=== PATIENT | male | born 1970 | race Caucasian/White ===

== ENCOUNTER 2017-02-19 18:18 | Observation (INO) | payer OTHER ==
[2017-02-19] MEDS ORDERED: NITROGLYCERIN SL 0.4 MG TABLET SL STA (19:03)
[2017-02-19] MEDS ORDERED: ASPIRIN CHEW 81 MG TABLET PO STA (19:03)
--- NOTE | 2017-02-19 19:08 | ED Physician Documentation ---
PD HPI CHEST PAIN - Stated complaint Stated Complaint: CHEST PX - Chief complaint Chief Complaint: Cardiac - History obtained from History obtained from: Patient - History of Present Illness Timing - onset: Other (46yo male with bad fhx- dad's first [place] at age 41. [place] tired with some LBP all day. About 1 hour ago with severe L sided chest pain without radiation and tingly L arm. Hurts to tqake a deep breath but no dyspnea. ) Review of Systems Ten Systems: 10 systems reviewed and negative Constitutional: reports: Reviewed and negative Ears: reports: Reviewed and negative Nose: denies: Rhinorrhea / runny nose, Congestion Cardiac: reports: Chest pain / pressure. denies: Palpitations, Pedal edema, Calf pain Respiratory: denies: Dyspnea, Cough PD PAST MEDICAL HISTORY - Past Medical History Cardiovascular: None Respiratory: None Endocrine/Autoimmune: None GI: None : None, Other HEENT: None Psych: None, Anxiety Musculoskeletal: Other Derm: None - Past Surgical History Ortho: ACL reconstruction, Other - Present Medications Home Medications: Ambulatory Orders Medication Instructions Recorded Confirmed Citalopram [CeleXA] 10 mg PO DAILY 07/19/14 07/19/14 Naproxen Sodium [Aleve] 220 mg PO BID 07/19/14 07/19/14 Oxycodone HCl/Acetaminophen 1 tab PO Q4H PRN 07/19/14 07/19/14 [Percocet 5-325 mg Tablet] - Allergies Allergies/Adverse Reactions: Allergies Allergy/AdvReac Type Severity Reaction Status Date / Time No Known Drug Allergies Allergy Verified 02/19/17 18:43 - Social History Does the pt smoke?: No Smoking Status: Never smoker Does the pt drink ETOH?: Yes Does the pt have substance abuse?: No - Family History Family history: reports: CAD - Immunizations Immunizations: TDAP >10years/unknown PD ED PE NORMAL - Vitals Vital signs reviewed: Yes - General General: Alert and oriented X 3, Other (uncomfortable) - HEENT HEENT: PERRL, EOMI - Neck Neck: Supple, no meningeal sign, No bony TTP - Cardiac Cardiac: RRR, No murmur - Respiratory Respiratory: No respiratory distress, Clear bilaterally - Abdomen Abdomen: Soft, Non tender - Back Back: No CVA TTP, No spinal TTP - Derm Derm: Normal color, Warm and dry - Extremities Extremities: No edema, No calf tenderness / cord - Neuro Neuro: Alert and oriented X 3, Normal speech - Psych Psych: Normal mood, Normal affect Results - Vitals Vitals: Vital Signs - 24 hr 02/19/17 02/19/17 02/19/17 18:25 18:58 19:15 Temperature 36.5 C Heart Rate 70 73 Respiratory 20 16 Rate Blood Pressure 150/94 H 150/89 H O2 Saturation 100 100 02/19/17 21:09 Temperature 37.2 C Heart Rate 76 Respiratory 16 Rate Blood Pressure 134/81 H O2 Saturation 100 Oxygen O2 Source Room air - EKG (time done) 183 Rate: Rate (enter#) (66) Rhythm: NSR [place]: Normal Intervals: Normal [place] QRS: Normal Ischemia: Normal ST segments Computer interpretation: Agree with computer 1906 Rate: Rate (enter#) (65) Rhythm: NSR [place]: Normal Intervals: Normal [place] QRS: Normal Ischemia: Normal ST segments Compare to prior EKG: Unchanged from prior EKG (from first EKG at 183) Computer interpretation: Agree with computer - Labs Labs: Laboratory Tests 02/19/17 02/19/17 02/19/17 18:37 18:37 18:37 WBC 9.0 RBC 4.57 L Hgb 14.2 Hct 40.8 L MCV 89.3 MCH 31.1 H MCHC 34.8 RDW 13.0 Plt Count 228 MPV 7.5 Neut # 6.4 Lymph # 1.8 [place] # 0.7 Eos # 0.1 Baso # 0.0 Absolute Nucleated RBC 0.00 Nucleated RBCs 0.0 Sodium 140 Potassium 3.7 Chloride 103 Carbon Dioxide 29 Anion Gap 8.0 BUN 15 Creatinine 1.0 Estimated GFR (MDRD) 80 L Glucose 149 H Calcium 8.9 Total Bilirubin 1.5 H AST 18 ALT 13 Alkaline Phosphatase 64 Troponin I < 0.04 Total Protein 7.2 Albumin 4.7 Globulin 2.5 Albumin/Globulin Ratio 1.9 Lipase 34 02/19/17 20:53 WBC RBC Hgb Hct MCV MCH MCHC RDW Plt Count MPV Neut # Lymph # [place] # Eos # Baso # Absolute Nucleated RBC Nucleated RBCs Sodium Potassium Chloride Carbon Dioxide Anion Gap BUN Creatinine Estimated GFR (MDRD) Glucose Calcium Total Bilirubin AST ALT Alkaline Phosphatase Troponin I < 0.04 Total Protein Albumin Globulin Albumin/Globulin Ratio Lipase - Rads (name of study) CT Angio chest Radiology: EMP read contemporaneously (normal) 1v chest Radiology: EMP read contemporaneously (normal) PD MEDICAL DECISION MAKING - ED course ED course: 46-year-old gentleman with Concerning family history of coronary disease presents with somewhat typical chest pain of only a few hours duration. EKG is negative and 2 troponins are negative. It did radiate to the left arm with some tingling CT angiogram was done and also negative. Call to the hospitalist for observation at 9:34 PM. Departure - Departure Disposition: ED Place in Observation Clinical Impression: Chest pain Qualifiers: Chest pain type: chest pain on breathing Qualified Code(s): R07.1 - Chest pain on breathing Condition: Good Record reviewed to determine appropriate education?: Yes
[2017-02-19] MEDS ORDERED: ASPIRIN CHEW 81 MG TABLET ONE (19:20)
[2017-02-19] MEDS ORDERED: NITROGLYCERIN SL 0.4 MG TABLET SL ONE (19:20)
[2017-02-19 19:24] LABS: ALBUMIN/GLOBULIN RATIO 1.9 (1.0-2.2); BILIRUBIN,TOTAL 1.5 mg/dL (0.2-1.0); CALCIUM 8.9 mg/dL (8.5-10.3); POTASSIUM 3.7 mmol/L (3.5-5.0); TOTAL PROTEIN 7.2 g/dL (6.7-8.2)
[2017-02-19 19:25] LABS: BASOPHILS % (AUTO) 0.4 %; EOSINOPHILS # (AUTO) 0.1 10^3/uL (0.0-0.7); EOSINOPHILS % (AUTO) 1.7 %; HCT - HEMATOCRIT 40.8 % (42.0-52.0); HGB - HEMOGLOBIN 14.2 g/dL (14.0-18.0); LYMPHOCYTES # (AUTO) 1.8 10^3/uL (1.5-3.5); LYMPHOCYTES % (AUTO) 19.6 %; MEAN CORPUSCULAR HEMOGLOBIN 31.1 pg (27.0-31.0); MEAN CORPUSCULAR HGB CONC 34.8 g/dL (32.0-36.0); MEAN CORPUSCULAR VOLUME 89.3 fL (80.0-94.0); MEAN PLATELET VOLUME 7.5 fL (7.4-11.4); MONOCYTES # (AUTO) 0.7 10^3/uL (0.0-1.0); MONOCYTES % (AUTO) 7.3 %; NEUTROPHILS # (AUTO) 6.4 10^3/uL (1.5-6.6); RED BLOOD COUNT 4.57 10^6/uL (4.70-6.10)
[2017-02-19] MEDS ORDERED: ONDANSETRON 4 MG/2 ML VIAL ONE (19:41)
[2017-02-19] MEDS ORDERED: IOPAMIDOL-300 100 ML VIAL IVP ONE (19:41)
[2017-02-19] MEDS ORDERED: HYDROmorphone 1 MG/ML SYRINGE ONE (19:41)
[2017-02-19] MEDS ORDERED: ONDANSETRON 4 MG/2 ML VIAL IVP STA (19:44)
[2017-02-19] MEDS ORDERED: HYDROmorphone 1 MG/ML SYRINGE IVP STA (19:44)
--- NOTE | 2017-02-19 19:51 | XRAY Preliminary Report ---
Exam: XR Chest 1 View IMPRESSION: Normal single view chest. [facility] SITE ID: [id number]
--- NOTE | 2017-02-19 20:19 | CT Preliminary Report ---
Exam: CT Chest Angio (AORTA) IMPRESSION: Normal chest CT angiogram. No aneurysm or dissection. [facility] SITE ID: [id number]
--- NOTE | 2017-02-19 20:33 | XRAY Report ---
EXAM: CHEST RADIOGRAPHY EXAM DATE: 02/19/2017 07:23 PM. CLINICAL HISTORY: Acute onset of chest pain today. COMPARISON: None. TECHNIQUE: 1 view. FINDINGS: Lungs/Pleura: No focal opacities evident. No pleural effusion. No pneumothorax. Mediastinum: Within exam limitations, cardiomediastinal contour is normal. Other: None. IMPRESSION: Normal single view chest. [facility] Referring Provider Line: [phone] SITE ID: [id number]
--- NOTE | 2017-02-19 20:34 | CT Report ---
EXAM: CT ANGIOGRAM CHEST EXAM DATE: 02/19/2017 07:42 PM. CLINICAL HISTORY: Sudden onset of severe chest pain earlier today at 1800. COMPARISON: None. TECHNIQUE: Routine helical imaging was performed through the chest in the arterial phase. IV contrast : 100 mL Isovue-[id number]. Reconstructions: Coronal, sagittal, and 3D MIP reconstructions of the aorta. FINDINGS: Vascular Structures: Normal. No aneurysm, dissection, or significant atherosclerotic disease of the t horacic aorta. The visualized pulmonary arteries are within normal limits. Lungs/Pleura: No consolidation, nodules, or edema. No effusions or pneumothorax. Mediastinum: Normal. No cardiac enlargement or adenopathy. Upper Abdomen: Unremarkable. Other: None. IMPRESSION: Normal chest CT angiogram. No aneurysm or dissection. [facility] Referring Provider Line: [phone] SITE ID: [id number]
[2017-02-19] MEDS ORDERED: KETOROLAC 60 MG/2 ML VIAL IVP STA (23:05)
[2017-02-19] MEDS ORDERED: KETOROLAC 30 MG/ML VIAL ONE ×2 (23:12→23:15)
[2017-02-19] MEDS ORDERED: ACETAMINOPHEN 325 MG TABLET PO PRN (23:30)
[2017-02-19] MEDS ORDERED: SODIUM CHLORIDE FLUSH 0.9% 10 ML SYRINGE IVP PRN (23:30)
[2017-02-19] MEDS ORDERED: NITROGLYCERIN SL 0.4 MG TABLET SL PRN (23:30)
[2017-02-19] MEDS ORDERED: HYDROcod/ACETAM 5/325 MG TABLET PO PRN (23:30)
--- NOTE | 2017-02-19 23:52 | HISTORY & PHYSICAL EXAMINATION ---
Chief Complaint - Chief Complaint Chief Complaint: L sided chest pain Chest Pain Admission HPI - Admitted From Admitted from: ED - History Obtained From Records Reviewed: Old records reviewed History obtained from: Patient Exam limitations: No limitations - History of Present Illness Severity at the worst: reports: Severe Pain Quality: reports: Sharp Context-Pain started w/: reports: Exertion Timing: reports: Abrupt onset Duration: reports: Hours: Improved with: reports: Nothing Worsened by: reports: Nothing Associated symptoms: reports: Shortness of air, Nausea, Feeling faint / dizzy HPI Comment/Other: 46yoM with no significant past medical history. Pt was in his normal stat of health and working on his deck when he had sudden onset of L sided chest pain/ pressure. It got progressively worse and had some radiation down his L arm with numbness/tingling in lateral 3 fingers. He also became nauseated, but without emesis. He has not had prior episodes before. He has a family history of heart disease. His father had his first [place] at 41yo and at 59yo of [place]. His 7 siblings all have HTN, He had a treadmill test that was normal about 6 year ago. In ER he has had HTN, but otherwise normal VS. Labs are normal, Trop (-), CTangion (-), EKG nl. Still with L sided chest pain, mildly TTP with palpation, still with numbness in L 3-5th fingers. LEDEZMA improved, mild LH resolved, nausea resolved, no abd pain. no recent illnesses or sick contacts PMH/PSH - Past Medical History Cardiovascular: positive: None Respiratory: positive: None Endocrine/Autoimmune: positive: None GI: positive: None : positive: None, Other HEENT: positive: None Psych: positive: Anxiety Musculoskeletal: positive: Other Derm: positive: None MRSA Hx?: Yes - Past Surgical History Ortho: positive: ACL reconstruction, Other Social & Family Hx - Living Situation Living Situation: With spouse/s.o. - Social History Does the pt smoke?: No Smoking Status: Never smoker Does the pt drink ETOH?: Yes Does the pt have substance abuse?: No Additional Social History: , 3 kids. self employed in financial services , also on [employer], master Prescription Ey[employer] POLST Status: Full Code - Family History Family History: Father: , CAD Family History Comment/Other: Dad with CAD s/p 1st [place] at 41, of [place] at 59. heavy EtOH adn tobacco use Mom alive, +h/o miscarriage, tobacco use, COPD 7 siblings with HTN 1 sister with blood clots Meds/Allgy - Home Medications Home Medications: Ambulatory Orders Medication Instructions Recorded Confirmed Citalopram [CeleXA] 10 mg PO DAILY 07/19/14 07/19/14 Naproxen Sodium [Aleve] 220 mg PO BID 07/19/14 07/19/14 Oxycodone HCl/Acetaminophen 1 tab PO Q4H PRN 07/19/14 07/19/14 [Percocet 5-325 mg Tablet] - Allergies Allergies/Adverse Reactions: Allergies Allergy/AdvReac Type Severity Reaction Status Date / Time No Known Drug Allergies Allergy Verified 02/19/17 18:43 Review of Systems - Constitutional Constitutional: reports: Weakness. denies: Fever, Chills - Eyes Eyes: denies: Blurred vision, Dipolpia - Ears, Nose & Throat Ears, Nose & Throat: denies: Tinnitus, Dental pain - Cardiovascular Cariovascular: reports: Chest pain, Lightheadedness, Exertional dyspnea. denies : Palpitations, Syncope - Respiratory Respiratory: reports: SOB with exertion. denies: Cough, Sputum production, Wheezing - Gastrointestinal Gastrointestinal: denies: Abdominal pain, Constipation, Diarrhea, Black stools, Bloody stools, Nausea, Vomiting - Genitourinary Genitourinary: denies: Dysuria, Hematuria - Musculoskeletal Musculoskeletal: reports: Back pain. denies: Muscle pain, Muscle weakness - Integumentary Integumentary: denies: Rash, Pruritis - Neurological Neurological: reports: Headache, Dizziness, Numbness - All Other Systems All Other Systems: reports: Reviewed and negative Exam - Vital Signs Reviewed Vital Signs: Yes Vital Signs: Vital Signs x48h Temp Pulse Resp BP Pulse Ox 02/19/17 22:22 77 17 144/81 H 99 02/19/17 21:09 37.2 C 76 16 134/81 H 100 02/19/17 19:15 73 16 150/89 H 100 02/19/17 18:58 36.5 C 02/19/17 18:25 70 20 150/94 H 100 - Physical Exam General Appearance: positive: No acute distress Eyes Bilateral: positive: PERRL, EOMI, Conjunctivae nml, No scleral icterus ENT: positive: Pharynx nml. negative: Oral lesions Neck: positive: Thyroid nml, No JVD. negative: Thyromegaly, Lymphadenopathy (R) , Lymphadenopathy (L), Stiff neck Respiratory: positive: No respiratory distress, Breath sounds nml, Other (chest pain wtih palpation of sternum and squeezing ribs). negative: Wheezes, Rales, Rhonchi Cardiovascular: positive: Regular rate & rhythm, No murmur, No gallop Peripheral Pulses: positive: 2+ Abdomen: positive: Non-tender, No distention. negative: Guarding, Rebound Back: negative: CVA tenderness (R), CVA tenderness (L) Skin: positive: Color nml, No rash, Warm, Dry Extremities: positive: Non-tender, No pedal edema Neurologic/Psychiatric: positive: Oriented x3, CN's nml (2-12), Motor nml, Other (mild numbness in ulner distribution of L hand only. no weakness) Results - Lab Results Lab results reviewed: Yes Fish Bones: 02/19/17 18:37 02/19/17 18:37 Other Lab Results: Lab Results x24hrs 02/19/17 02/19/17 02/19/17 Range/Units 20:53 18:37 18:37 WBC (4.8-10.8) x10^3/uL RBC (4.70-6.10) 10^6/uL Hgb (14.0-18.0) g/dL Hct (42.0-52.0) % MCV (80.0-94.0) fL MCH (27.0-31.0) pg MCHC (32.0-36.0) g/dL RDW (12.0-15.0) % Plt Count (130-450) 10^3/uL MPV (7.4-11.4) fL Neut # (1.5-6.6) 10^3/uL Lymph # (1.5-3.5) 10^3/uL [place] # (0.0-1.0) 10^3/uL Eos # (0.0-0.7) 10^3/uL Baso # (0.0-0.1) 10^3/uL Absolute Nucleated RBC x10^3/uL Nucleated RBCs /100WBC Sodium 140 (135-145) mmol/L Potassium 3.7 (3.5-5.0) mmol/L Chloride 103 (101-111) mmol/L Carbon Dioxide 29 (21-32) mmol/L Anion Gap 8.0 (6-13) BUN 15 (6-20) mg/dL Creatinine 1.0 (0.6-1.2) mg/dL Estimated GFR (MDRD) 80 L (>89) Glucose 149 H (70-100) mg/dL Calcium 8.9 (8.5-10.3) mg/dL Total Bilirubin 1.5 H (0.2-1.0) mg/dL AST 18 (10-42) IU/L ALT 13 (10-60) IU/L Alkaline Phosphatase 64 (42-121) IU/L Troponin I < 0.04 < 0.04 (<0.49) ng/mL Total Protein 7.2 (6.7-8.2) g/dL Albumin 4.7 (3.2-5.5) g/dL Globulin 2.5 (2.1-4.2) g/dL Albumin/Globulin Ratio 1.9 (1.0-2.2) Lipase 34 (22-51) U/L /01/29 Range/Units 18:37 WBC 9.0 (4.8-10.8) x10^3/uL RBC 4.57 L (4.70-6.10) 10^6/uL Hgb 14.2 (14.0-18.0) g/dL Hct 40.8 L (42.0-52.0) % MCV 89.3 (80.0-94.0) fL MCH 31.1 H (27.0-31.0) pg MCHC 34.8 (32.0-36.0) g/dL RDW 13.0 (12.0-15.0) % Plt Count 228 (130-450) 10^3/uL MPV 7.5 (7.4-11.4) fL Neut # 6.4 (1.5-6.6) 10^3/uL Lymph # 1.8 (1.5-3.5) 10^3/uL [place] # 0.7 (0.0-1.0) 10^3/uL Eos # 0.1 (0.0-0.7) 10^3/uL Baso # 0.0 (0.0-0.1) 10^3/uL Absolute Nucleated RBC 0.00 x10^3/uL Nucleated RBCs 0.0 /100WBC Sodium (135-145) mmol/L Potassium (3.5-5.0) mmol/L Chloride (101-111) mmol/L Carbon Dioxide (21-32) mmol/L Anion Gap (6-13) BUN (6-20) mg/dL Creatinine (0.6-1.2) mg/dL Estimated GFR (MDRD) (>89) Glucose (70-100) mg/dL Calcium (8.5-10.3) mg/dL Total Bilirubin (0.2-1.0) mg/dL AST (10-42) IU/L ALT (10-60) IU/L Alkaline Phosphatase (42-121) IU/L Troponin I (<0.49) ng/mL Total Protein (6.7-8.2) g/dL Albumin (3.2-5.5) g/dL Globulin (2.1-4.2) g/dL Albumin/Globulin Ratio (1.0-2.2) Lipase (22-51) U/L - Diagnostic Imaging Results Diagnostic Imaging Results: positive: Final report reviewed Diagnostic Imaging Results Comments: CTA - no dissection or aneurysm CXR - normal, no acute findings - EKG Results EKG Interpreted Independently: Yes EKG Comparison: positive: No prior EKG EKG Findings: Sinus rhythm at 66bpm ARRA - Anticipated LOS Anticipated Stay Length: Less than 2 midnights - DVT/VTE - Prophylaxis VTE/DVT Device ordered at admit?: Yes CP/CHF Plan - Echo Plan to order an echo?: No - Plan Patient Problems: All Active Problems Chest pain (Acute) Encounter for Engel catheter removal (Acute) Plan: 1. Chest pain, mildly pleuritic, however pt with FHx early heart disease. Last ETT >5yrs ago - trend troponin and EKG - statin, B-block, ASA - pain control - will need outpt stress test 2. elevated glc, no h/o DM - check A1c 3. elevated Total Bili -chronic - refer to PCP for workup 4. DVT prophy - heparin 5. Dispo - likely home soon - anticipate hospital LOS <96hrs
[2017-02-20] MEDS: oxyCODONE 5 MG TABLET PO PRN ×2 (00:36→06:57)
[2017-02-20 03:11] LABS: BASOPHILS % (AUTO) 0.4 %; EOSINOPHILS % (AUTO) 0.3 %; HCT - HEMATOCRIT 39.6 % (42.0-52.0); HGB - HEMOGLOBIN 13.8 g/dL (14.0-18.0); LYMPHOCYTES # (AUTO) 1.3 10^3/uL (1.5-3.5); LYMPHOCYTES % (AUTO) 15.7 %; MEAN CORPUSCULAR HEMOGLOBIN 31.4 pg (27.0-31.0); MEAN CORPUSCULAR VOLUME 89.6 fL (80.0-94.0); MEAN PLATELET VOLUME 6.9 fL (7.4-11.4); MONOCYTES # (AUTO) 0.9 10^3/uL (0.0-1.0); MONOCYTES % (AUTO) 11.3 %; NEUTROPHILS # (AUTO) 5.8 10^3/uL (1.5-6.6); NEUTROPHILS % (AUTO) 72.3 %; RED BLOOD COUNT 4.41 10^6/uL (4.70-6.10); RED CELL DISTRIBUTION WIDTH 12.7 % (12.0-15.0); UNCORRECTED WHITE BLOOD COUNT 8.1 x10^3/uL; WHITE BLOOD COUNT 8.1 x10^3/uL (4.8-10.8)
[2017-02-20 03:27] LABS: HEMOGLOBIN A1C 0.45 g/dL
[2017-02-20 03:29] LABS: ALBUMIN/GLOBULIN RATIO 1.7 (1.0-2.2); BILIRUBIN,TOTAL 1.8 mg/dL (0.2-1.0); BUN - BLOOD UREA NITROGEN 13 mg/dL (6-20); CALCIUM 8.7 mg/dL (8.5-10.3); CARBON DIOXIDE - CO2 29 mmol/L (21-32); CHLORIDE 104 mmol/L (101-111); CHOL/HDL RATIO 3.5 (<5.0); CHOLESTEROL 173 mg/dL; GFR - MDRD 80 (>89); GLUCOSE 113 mg/dL (70-100); HDL CHOLESTEROL 49 mg/dL; LDL/HDL RATIO 2.2 (<3.6); POTASSIUM 4.2 mmol/L (3.5-5.0); SODIUM 139 mmol/L (135-145); TOTAL PROTEIN 6.4 g/dL (6.7-8.2); TRIGLYCERIDES 77 mg/dL; VLDL CHOLESTEROL 15 mg/dL
[2017-02-20] MEDS: SODIUM CHLORIDE FLUSH 0.9% 10 ML SYRINGE IVP SCH ×2 (06:58→13:04)
[2017-02-20] MEDS ORDERED: ASPIRIN CHEW 81 MG TABLET PO SCH (09:00)
[2017-02-20] MEDS ORDERED: FAMOTIDINE 20 MG TABLET PO SCH (09:00)
[2017-02-20] MEDS ORDERED: POLYETHYLENE GLYCOL 3350 17 GM PACKET PO SCH (09:00)
[2017-02-20] MEDS ORDERED: HEPARIN 5,000 UNIT/ML VIAL SUBQ SCH (09:00)
[2017-02-20] MEDS ORDERED: METOPROLOL TARTRATE 25 MG TABLET PO SCH (09:00)
[2017-02-20 11:58] VITALS: BP 124/73
--- NOTE | 2017-02-20 12:09 | Discharge Plan ---
Discharge Plan Disposition: 01 Home, Self Care Condition: Stable Diet: Cardiac Activity Restrictions: Activity as Tolerated Additional Instructions or Follow Up instructions: May see PCP in one week May see Dialysis Patient Care Technician and follow up stress test as out patient in two weeks Follow-Up Care: [facility] - Cardiac No Smoking: If you smoke, Please STOP! Call for help.
--- NOTE | 2017-02-23 12:09 | DISCHARGE SUMMARY ---
"Discharge Summary Admit Date: 02/19/17 Condition at Discharge: Stable Discharge Disposition: 01 Home, Self Care - DIAGNOSES Admission Diagnoses: Chest pain, elevated glc, no h/o DM elevated Total Bili -chronic Discharge Diagnoses with Status of Each Condition: Chest pain, resolved, advise pt for out pt stress test elevated glc, no h/o DM, A1C 5, elevated Total Bili -chronic, follow up PCP - HPI History of Present Illness: referral from Bisi Soto's HPI on 02/19/17 6yoM with no significant past medical history. Pt was in his normal stat of health and working on his deck when he had sudden onset of L sided chest pain/ pressure. It got progressively worse and had some radiation down his L arm with numbness/tingling in lateral 3 fingers. He also became nauseated, but without emesis. He has not had prior episodes before. He has a family history of heart disease. His father had his first [place] at 41yo and at 59yo of [place]. His 7 siblings all have HTN, He had a treadmill test that was normal about 6 year ago. In ER he has had HTN, but otherwise normal VS. Labs are normal, Trop (-), CTangion (-), EKG nl. Still with L sided chest pain, mildly TTP with palpation, still with numbness in L 3-5th fingers. LEDEZMA improved, mild LH resolved, nausea resolved, no abd pain. no recent illnesses or sick contacts - CONSULTS | PROCEDURES Procedures: ECHO indicated normal arrange LV function - HOSPITAL COURSE Hospital Course: pt has onset chest pain, pt had ECHO, troponin serial, tele monitor, EKG, all test suggest pt has atypical chest. Pt has a strong family of CAD. pt was advised to have out-pt stress test. - ALLERGIES Allergies/Adverse Reactions: Allergies Allergy/AdvReac Type Severity Reaction Status Date / Time No Known Drug Allergies Allergy Verified 02/19/17 18:43 - MEDICATIONS Home Medications: Ambulatory Orders Medication Instructions Recorded Confirmed Citalopram [CeleXA] 10 mg PO DAILY 07/19/14 07/19/14 Naproxen Sodium [Aleve] 220 mg PO BID 07/19/14 07/19/14 Oxycodone HCl/Acetaminophen 1 tab PO Q4H PRN 07/19/14 07/19/14 [Percocet 5-325 mg Tablet] - PHYSICAL EXAM AT DISCHARGE General Appearance: positive: No acute distress, Alert. negative: Anxious, Lethargic Eyes Bilateral: positive: Normal inspection, PERRL. negative: No lid inflammation, Conjunctivae nml ENT: positive: ENT inspection nml, Pharynx nml, No signs of dehydration. negative: Purulent nasal drainage, Pharyngeal erythema, Oral lesions Neck: positive: Nml inspection, Thyroid nml, No JVD, Trachea midline. negative : Thyromegaly, Lymphadenopathy (R), Lymphadenopathy (L), Stiff neck, Carotid bruit, Swelling/bruising, Tracheal deviation Respiratory: positive: Chest non-tender, No respiratory distress, Breath sounds nml. negative: Wheezes, Rales, Rhonchi Cardiovascular: positive: Regular rate & rhythm, No murmur, No gallop. negative : Extrasystoles, Tachycardia, Bradycardia, Systolic murmur, Diastolic murmur, Friction rub, Decreased pulse(s) Peripheral Pulses: positive: 2+ Abdomen: positive: Non-tender, Nml bowel sounds, No distention. negative: Tenderness, Guarding, Rebound Back: positive: Nml inspection. negative: CVA tenderness (R), CVA tenderness (L ) Skin: positive: Color nml, No rash. negative: Diaphoresis, Pallor, Skin rash, Decubitus Extremities: positive: Non-tender, Full ROM, Nml appearance, No pedal edema. negative: Pedal edema, Calf tenderness, Joint swelling Neurologic/Psychiatric: positive: Oriented x3, CN's nml (2-12), Motor nml, Sensation nml, Mood/affect nml. negative: Disoriented to person, Disoriented to place, Disoriented to time, Weakness, Slurred/abnml speech, Depressed mood/ affect - LABS Result Diagrams: 02/20/17 03:04 02/20/17 03:04 - FOLLOW UP Follow Up: may follow up PCP and tram driver in two weeks, has stress test in out patient"
== END 2017-02-20 13:16 | disposition home or self-care (01) ==
LOC: ED 18:18 → OBS 23:30
PROVIDERS: ADMIT Internal Medicine; ATTEND Nurse Practitioner Gerontology
DX: R07.9 Chest pain, unspecified (principal); R17 Unspecified jaundice; F41.9 Anxiety disorder, unspecified; Z82.49 Family history of ischemic heart disease and other diseases of the circulatory system; Z79.891 Long term (current) use of opiate analgesic; Z79.899 Other long term (current) drug therapy
CPT/HCPCS: 36415; 71010; 71275; 80053; 80061; 83036; 83690; 84484; 85025; 93005; 93306; 96374; 96375; 99284; 99285; A9270; G0378; J1170; Q9967

== ENCOUNTER 2019-04-07 08:00 | Outpatient (CLI) | payer OTHER ==
[2019-04-07 13:25] LABS: ALBUMIN 4.5 g/dL (3.2-5.5); ALBUMIN/GLOBULIN RATIO 1.8 (1.0-2.2); BILIRUBIN,TOTAL 1.6 mg/dL (0.2-1.0); CREATININE 0.9 mg/dL (0.6-1.2)
== END 2019-04-07 23:59 | disposition home or self-care (01) ==
LOC: LAB.WCP 08:00
PROVIDERS: ATTEND Family Medicine
DX: R73.9 Hyperglycemia, unspecified (principal); Z12.5 Encounter for screening for malignant neoplasm of prostate
CPT/HCPCS: 36415; 80053; 84153; 84443

== ENCOUNTER 2019-05-22 10:01 | Outpatient (CLI) | payer OTHER ==
[2019-05-22] MEDS ORDERED: BARIUM SULFATE 176 GM BOTTLE PO ONE (11:00)
[2019-05-22] MEDS ORDERED: BARIUM SULFATE 148 GM POWDER PO ONE (11:00)
--- NOTE | 2019-05-23 11:16 | XRAY Report ---
Reason: GERD Procedure Date: 05/22/2019 Accession Number: [id number] / [id number] Procedure: [place] - Esophogram CPT Code: Final Report FULL RESULT: EXAM: BARIUM ESOPHAGRAM EXAM DATE: 05/22/2019 10:50 AM. CLINICAL HISTORY: GERD. COMPARISONS: None. TECHNIQUE: Routine double contrast esophagram. Fluoroscopy Time: 2 minutes 1 second. Number of Images: 11. FINDINGS: Swallowing Mechanism: Normal. No tracheal aspiration or penetration. Esophageal Motility: Normal peristaltic stripping wave. Mucosa: Normal. No ulcerations or masses. Gastroesophageal Junction: Spontaneous reflux noted. No mass or stricture. Other: None. IMPRESSION: Spontaneous reflux without evidence of hernia, fixed stricture or obvious filling defect to suggest mass by barium esophagram. [facility]
== END 2019-05-22 10:02 | disposition home or self-care (01) ==
LOC: DI 10:01
PROVIDERS: ATTEND Family Medicine
DX: K21.9 Gastro-esophageal reflux disease without esophagitis (principal)
CPT/HCPCS: 74220; A9270

== ENCOUNTER 2020-01-28 08:50 | Outpatient (CLI) | payer OTHER ==
[2020-01-28 13:10] LABS: ALBUMIN 4.4 g/dL (3.2-5.5); ALBUMIN/GLOBULIN RATIO 1.6 (1.0-2.2); ALKALINE PHOSPHATASE 63 IU/L (42-121); ALT ALANINE AMINOTRANSFERASE 16 IU/L (10-60); AST ASPARTATE AMINOTRANSFERASE 15 IU/L (10-42); BILIRUBIN,TOTAL 1.3 mg/dL (0.2-1.0); BUN - BLOOD UREA NITROGEN 19 mg/dL (6-20); CARBON DIOXIDE - CO2 29 mmol/L (21-32); CHLORIDE 103 mmol/L (101-111); CHOL/HDL RATIO 4.1 (<5.0); CHOLESTEROL 209 mg/dL; CREATININE 0.8 mg/dL (0.6-1.2); GLUCOSE 99 mg/dL (70-100); HDL CHOLESTEROL 51 mg/dL; LDL CHOLESTEROL,CALCULATED 136 mg/dL; LDL/HDL RATIO 2.7 (<3.6); SODIUM 139 mmol/L (135-145); TOTAL PROTEIN 7.2 g/dL (6.7-8.2); VLDL CHOLESTEROL 22 mg/dL
== END 2020-01-28 23:59 | disposition home or self-care (01) ==
LOC: LAB.WCP 08:50
PROVIDERS: ATTEND Family Medicine
DX: R03.0 Elevated blood-pressure reading, without diagnosis of hypertension (principal); R73.01 Impaired fasting glucose
CPT/HCPCS: 36415; 80053; 80061; 83721; 84443

== ENCOUNTER 2020-01-28 09:05 | Outpatient (CLI) | payer OTHER ==
--- NOTE | 2020-01-28 09:36 | XRAY Report ---
Reason: RIGHT HIP ARTHRITIS Procedure Date: 01/28/2020 Accession Number: [id number] / [id number] Procedure: [facility] - Hip 1 View RT CPT Code: Final Report FULL RESULT: PROCEDURE: Hip 1 View RT INDICATIONS: RIGHT HIP ARTHRITIS TECHNIQUE: 3 views of the hip were acquired. COMPARISON: No recent films cover this region. FINDINGS: Bones: No fractures or dislocations, but there is mild asymmetric hip joint osteoarthritis, slightly greater on the right than the left. No suspicious bony lesions. The visualized pelvic ring appears intact. Soft tissues: No suspicious soft tissue calcifications or masses. IMPRESSION: The hip joint osteoarthritis is mild bilaterally but slightly greater on the right than the left. No trauma found. Reviewed by: Beau Glass MD on 01/28/2020 9:34 AM PDT Approved by: Beau Glass MD on 01/28/2020 9:34 AM PDT Station ID: [id number]
== END 2020-01-28 23:59 | disposition home or self-care (01) ==
LOC: DI.WCP 09:05
PROVIDERS: ATTEND Family Medicine
DX: M16.0 Bilateral primary osteoarthritis of hip (principal); R03.0 Elevated blood-pressure reading, without diagnosis of hypertension; R73.01 Impaired fasting glucose
CPT/HCPCS: 36415; 80053; 80061; 83721; 84443

== ENCOUNTER 2020-02-03 09:10 | Outpatient (CLI) | payer OTHER | END 2020-02-03 23:59 | disposition home or self-care (01) | LOC: COV 09:10 | PROVIDERS: ATTEND Family Medicine | DX: G47.33 Obstructive sleep apnea (adult) (pediatric) (principal); Z20.828 Contact with and (suspected) exposure to other viral communicable diseases ==

== ENCOUNTER 2020-09-17 08:15 | Outpatient (CLI) | payer OTHER ==
[2020-09-17 12:05] LABS: BASOPHILS % (AUTO) 0.8 %; EOSINOPHILS # (AUTO) 0.2 10^3/uL (0.0-0.7); EOSINOPHILS % (AUTO) 4.2 %; HCT - HEMATOCRIT 41.9 % (42.0-52.0); HGB - HEMOGLOBIN 14.5 g/dL (14.0-18.0); LYMPHOCYTES # (AUTO) 1.5 10^3/uL (1.5-3.5); LYMPHOCYTES % (AUTO) 29.2 %; MEAN CORPUSCULAR HEMOGLOBIN 31.2 pg (27.0-31.0); MEAN CORPUSCULAR HGB CONC 34.6 g/dL (32.0-36.0); MEAN CORPUSCULAR VOLUME 90.1 fL (80.0-94.0); MEAN PLATELET VOLUME 9.6 fL (7.4-11.4); MONOCYTES # (AUTO) 0.4 10^3/uL (0.0-1.0); MONOCYTES % (AUTO) 7.4 %; NEUTROPHILS # (AUTO) 2.9 10^3/uL (1.5-6.6); NEUTROPHILS % (AUTO) 58.2 %; PLT - PLATELET COUNT 228 10^3/uL (130-450); RED BLOOD COUNT 4.65 10^6/uL (4.70-6.10); RED CELL DISTRIBUTION WIDTH 12.1 % (12.0-15.0)
[2020-09-17 13:03] LABS: ALBUMIN 4.5 g/dL (3.2-5.5); ALBUMIN/GLOBULIN RATIO 1.7 (1.0-2.2); ALKALINE PHOSPHATASE 60 IU/L (42-121); ALT ALANINE AMINOTRANSFERASE 19 IU/L (10-60); AST ASPARTATE AMINOTRANSFERASE 16 IU/L (10-42); BILIRUBIN,TOTAL 1.2 mg/dL (0.2-1.0); BUN - BLOOD UREA NITROGEN 17 mg/dL (6-20); CALCIUM 9.2 mg/dL (8.5-10.3); CARBON DIOXIDE - CO2 26 mmol/L (21-32); CHLORIDE 104 mmol/L (101-111); CHOL/HDL RATIO 4.9 (<5.0); CHOLESTEROL 255 mg/dL; CREATININE 0.8 mg/dL (0.6-1.2); GFR - MDRD 103 (>89); GLUCOSE 94 mg/dL (70-100); HDL CHOLESTEROL 52 mg/dL; LDL CHOLESTEROL,CALCULATED 179 mg/dL; LDL/HDL RATIO 3.4 (<3.6); SODIUM 139 mmol/L (135-145); TOTAL PROTEIN 7.1 g/dL (6.7-8.2); TRIGLYCERIDES 121 mg/dL; VLDL CHOLESTEROL 24 mg/dL
[2020-09-17 13:12] LABS: THYROID STIMULATING HORMONE 3.4 uIU/mL (0.34-5.60)
[2020-09-17 19:33] LABS: ESTIMATED AVERAGE GLUCOSE 88 mg/dL (70-100); HEMOGLOBIN A1c% 4.7 % (4.27-6.07)
== END 2020-09-17 23:59 | disposition home or self-care (01) ==
LOC: LAB.WCP 08:15
PROVIDERS: ATTEND Family Medicine
DX: Z00.00 Encounter for general adult medical examination without abnormal findings (principal); E78.5 Hyperlipidemia, unspecified; R73.01 Impaired fasting glucose; N52.9 Male erectile dysfunction, unspecified
CPT/HCPCS: 36415; 80053; 80061; 83036; 83721; 84153; 84443; 85025

== ENCOUNTER 2021-02-28 06:32 | Day surgery (SDC) | payer OTHER ==
[2021-02-28] MEDS ORDERED: LACTATED RINGERS 1,000 ML IV ONE ×2 (06:50→08:37)
[2021-02-28] MEDS ORDERED: PROPOFOL 1000 MG/100 ML 1,000 MG/100 ML BOTTLE IV ONE (07:05)
--- NOTE | 2021-02-28 07:21 | ANESTHESIA ---
Pre-Anesthesia VS, & Labs - Diagnosis screening - Procedure colonoscopy Vital Signs: Temp Pulse Resp BP Pulse Ox 36.2 C L 54 L 16 139/80 H 97 02/28/21 06:35 02/28/21 06:35 02/28/21 06:35 02/28/21 06:35 02/28/21 06:35 Height: 6 ft Weight (kg): 104 kg Body Mass Index: 31.1 BMI Classification: Obese - NPO >8 hours - Lab Results Lab results reviewed: Yes Home Medications and Allergies Home Medications: Ambulatory Orders FLUoxetine [PROzac] 10 mg PO DAILY 02/28/21 FLUoxetine [PROzac] 10 mg PO DAILY 02/28/21 Allergies/Adverse Reactions: Allergies Allergy/AdvReac Type Severity Reaction Status Date / Time No Known Drug Allergies Allergy Verified 02/28/21 06:54 Anes History & Medical History - Anesthetic History Anesthesia Complications: reports: No previous complications Family history of Anesthesia Complications: Denies Family history of Malignant Hyperthermia: Denies - Medical History Cardiovascular: reports: None Pulmonary: reports: None Gastrointestinal: reports: None Urinary: reports: None Musculoskeletal: reports: Other Endocrine/Autoimmune: reports: None Blood Disorders: reports: None Skin: reports: None Smoking Status: Never smoker - Surgical History Eyes Ears Nose Throat (EENT): reports: Other Orthopedic: reports: Other Exam General: Alert, Oriented x3, Cooperative, No acute distress Dental: WNL Mouth Openin Fingerbreadth Respiratory: Lungs clear, Normal breath sounds, No respiratory distress, No accessory muscle use Cardiovascular: Regular rate, Normal S1, Normal S2, No murmurs Plan Anesthesia Type: Total IV Consent for Procedure(s) Verified and Reviewed: Yes Code Status: Attempt Resuscitation ASA classification: 2-Mild systemic disease Is this case an emergency?: No
[2021-02-28 09:40] VITALS: BP 133/85
--- NOTE | 2021-02-28 14:40 | ANESTHESIA POST OP EVALUATION ---
Anesthesia Post Eval - Post Anesthesia Eval Vitals: Last Vital Signs Temp 36.0 C L 02/28/21 08:35 Pulse 49 L 02/28/21 09:15 Resp 16 02/28/21 09:15 BP 133/85 H 02/28/21 09:15 Pulse Ox 100 02/28/21 09:15 CV Function Including HR & BP: Stable Pain Control: Satisfactory Nausea & Vomiting: Negative Mental Status: Baseline Respiratory Status: Airway Patent Hydration Status: Satisfactory Anesthesia Complications: None
== END 2021-02-28 06:33 | disposition home or self-care (01) ==
LOC: SDS 06:32
PROVIDERS: ATTEND Surgery
PROC: 0DBN8ZZ Excision of Sigmoid Colon, Via Natural or Artificial Opening Endoscopic (ICD-10-PCS; principal; 2021-02-28 07:30)
DX: Z12.11 Encounter for screening for malignant neoplasm of colon (principal); K63.5 Polyp of colon
CPT/HCPCS: 45385; J7120

== ENCOUNTER 2023-05-11 07:53 | Outpatient (CLI) | payer OTHER ==
[2023-05-11 12:36] LABS: BASOPHILS % (AUTO) 0.8 %; EOSINOPHILS # (AUTO) 0.2 10^3/uL (0.0-0.7); EOSINOPHILS % (AUTO) 2.9 %; HGB - HEMOGLOBIN 14.2 g/dL (14.0-18.0); LYMPHOCYTES # (AUTO) 1.3 10^3/uL (1.5-3.5); LYMPHOCYTES % (AUTO) 25.4 %; MEAN CORPUSCULAR HEMOGLOBIN 31.1 pg (27.0-31.0); MEAN CORPUSCULAR HGB CONC 34.6 g/dL (32.0-36.0); MEAN CORPUSCULAR VOLUME 89.7 fL (80.0-94.0); MEAN PLATELET VOLUME 9.6 fL (7.4-11.4); MONOCYTES # (AUTO) 0.4 10^3/uL (0.0-1.0); MONOCYTES % (AUTO) 7.5 %; NEUTROPHILS # (AUTO) 3.3 10^3/uL (1.5-6.6); PLT - PLATELET COUNT 231 10^3/uL (130-450); RED BLOOD COUNT 4.57 10^6/uL (4.70-6.10); RED CELL DISTRIBUTION WIDTH 11.9 % (12.0-15.0); WHITE BLOOD COUNT 5.2 x10^3/uL (4.8-10.8)
[2023-05-11 13:01] LABS: THYROID STIMULATING HORMONE 3.39 uIU/mL (0.34-5.60)
[2023-05-11 13:08] LABS: ALBUMIN 4.7 g/dL (3.2-5.5); ALBUMIN/GLOBULIN RATIO 2.2 (1.0-2.2); ALKALINE PHOSPHATASE 68 IU/L (42-121); ALT ALANINE AMINOTRANSFERASE 20 IU/L (10-60); AST ASPARTATE AMINOTRANSFERASE 13 IU/L (10-42); BILIRUBIN,TOTAL 1.4 mg/dL (0.2-1.0); BUN - BLOOD UREA NITROGEN 14 mg/dL (6-20); CALCIUM 9.4 mg/dL (8.5-10.3); CARBON DIOXIDE - CO2 27 mmol/L (21-32); CHLORIDE 105 mmol/L (101-111); CHOL/HDL RATIO 5.4 (<5.0); CHOLESTEROL 242 mg/dL; CREATININE 0.9 mg/dL (0.6-1.3); GFR - MDRD 89 (>89); GLUCOSE 97 mg/dL (74-104); HDL CHOLESTEROL 45 mg/dL; LDL CHOLESTEROL,CALCULATED 161 mg/dL; LDL/HDL RATIO 3.6 (<3.6); POTASSIUM 4.2 mmol/L (3.5-4.5); SODIUM 138 mmol/L (135-145); TOTAL PROTEIN 6.8 g/dL (6.4-8.9); TRIGLYCERIDES 182 mg/dL (48-352); VLDL CHOLESTEROL 36 mg/dL
== END 2023-05-11 07:54 | disposition home or self-care (01) ==
LOC: LAB.N 07:53
PROVIDERS: ATTEND Nurse Practitioner
DX: E78.5 Hyperlipidemia, unspecified (principal); Z51.81 Encounter for therapeutic drug level monitoring; Z12.5 Encounter for screening for malignant neoplasm of prostate; F41.9 Anxiety disorder, unspecified; F32.A Depression, unspecified
CPT/HCPCS: 36415; 80053; 80061; 83721; 84153; 84443; 85025